=== PATIENT | male | born 1955 | race African-American/Black ===

== ENCOUNTER 2018-11-02 13:40 | Observation (INO) ==
[2018-11-02 14:12] LABS: Basophils % 0.4 % (0.0-0.8); Eosinophils # 0.2 10*3/uL (0.0-0.87); Eosinophils % 1.8 % (0.00-10.9); Hematocrit 38.3 VOL% (42.0-52.0); Hemoglobin 11.6 GM/DL (14.0-18.0); Immature Granulocytes % 0.3 %; Immature Granulocytes Absolute 0.03 #; Lymphocytes # 2.1 10*3/uL (1.4-4.0); Lymphocytes % 23.5 % (21.2-54.2); Mean Corpuscular HGB Conc 30.3 GM/DL (32-36); Mean Platelet Volume 10.3 FL (9.6-12.0); Monocytes % 8.1 % (1.7-12.7); Neutrophils % 65.9 % (38.7-73.9); Platelet Count 382 T/CUMM (130-400); Red Blood Count 5.11 MC/CUMM (3.8-5.5); White Blood Count 9.1 T/CUMM (4-12)
[2018-11-02 14:21] LABS: PT Patient Result 10.6 SECS; Partial Thromboplastin Time 26.6 SECS (0-40)
[2018-11-02 14:32] LABS: Calcium 9.3 MG/DL (8.5-10.1); Osmolality,Calculated 278.7 MOS/KG (273-304)
[2018-11-02] MEDS ORDERED: MAGNESIUM SULF RIDER 4 GM in PREMIX 1 EACH IV PRN (15:30)
[2018-11-02] MEDS ORDERED: MAGNESIUM SULF RIDER 2 GM in PREMIX 1 EACH IV PRN (15:30)
[2018-11-02] MEDS ORDERED: ONDANSETRON 4 MG/2 ML VIAL IV PRN (15:30)
[2018-11-02] MEDS: SODIUM CHLORIDE 0.45% 1,000 ML IV SCH (17:20)
[2018-11-02] MEDS ORDERED: POTASSIUM CHLORIDE 20 MEQ TABLET PO ONE (19:00)
[2018-11-02] MEDS: RIVAROXABAN 10 MG TABLET PO SCH (20:18)
[2018-11-02] MEDS: SULFAMETHOX/TRIMETHOPRIM 800-160 MG TABLET PO SCH (20:18)
[2018-11-02] MEDS: TICAGRELOR 90 MG TABLET PO SCH (20:18)
[2018-11-02] MEDS: CLINDAMYCIN 300 MG CAPSULE PO SCH (20:18)
[2018-11-03] MEDS: SODIUM CHLORIDE 0.45% 1,000 ML IV SCH (04:41)
[2018-11-03 06:16] LABS: Calcium 9.1 MG/DL (8.5-10.1); Osmolality,Calculated 279.4 MOS/KG (273-304)
[2018-11-03 06:34] LABS: Basophils % 0.4 % (0.0-0.8); Eosinophils # 0.2 10*3/uL (0.0-0.87); Eosinophils % 2.1 % (0.00-10.9); Hemoglobin 10.2 GM/DL (14.0-18.0); Immature Granulocytes % 0.3 %; Immature Granulocytes Absolute 0.02 #; Lymphocytes # 1.7 10*3/uL (1.4-4.0); Lymphocytes % 21.5 % (21.2-54.2); Mean Corpuscular HGB Conc 30.9 GM/DL (32-36); Mean Corpuscular Volume 72.8 FL (87-102); Mean Platelet Volume 10.9 FL (9.6-12.0); Neutrophils % 66.7 % (38.7-73.9); Platelet Count 362 T/CUMM (130-400); Red Blood Count 4.53 MC/CUMM (3.8-5.5); Red Cell Distribution Width 14.8 % (9.3-17.3); White Blood Count 7.8 T/CUMM (4-12)
[2018-11-03] MEDS: TICAGRELOR 90 MG TABLET PO SCH (08:45)
[2018-11-03] MEDS: SULFAMETHOX/TRIMETHOPRIM 800-160 MG TABLET PO SCH (08:45)
[2018-11-03] MEDS: RIVAROXABAN 10 MG TABLET PO SCH (08:45)
[2018-11-03] MEDS: CLINDAMYCIN 300 MG CAPSULE PO SCH (08:45)
[2018-11-03] MEDS ORDERED: LISINOPRIL 10 MG TABLET PO SCH (09:00)
[2018-11-03 12:28] VITALS: BP 120/77
[2018-11-04] MEDS ORDERED: RIVAROXABAN 15 MG TABLET PO SCH (08:00)
== END 2018-11-03 15:30 | disposition home or self-care (01) ==
LOC: EDUNIT# → EDBD → N.EDINP 13:40 → N.ED 13:40 → N.EDINP 16:40 → N.TELES 16:44
PROVIDERS: ADMIT Internal Medicine Cardiovascular Disease; ATTEND Internal Medicine Cardiovascular Disease